=== PATIENT | female | born 1995 | race Caucasian/White ===

== ENCOUNTER 2020-08-29 11:30 | Outpatient (CLI) | payer OTHER | END 2020-08-29 11:33 | disposition home or self-care (01) | LOC: SONOGRAMA 11:30 | PROVIDERS: ATTEND Pathology Anatomic Pathology & Clinical Pathology | DX: E04.1 Nontoxic single thyroid nodule (principal) ==

== ENCOUNTER 2020-09-06 12:44 | Outpatient (CLI) | payer OTHER | END 2020-09-06 12:49 | disposition home or self-care (01) | LOC: OFIC 805 12:44 | PROVIDERS: ATTEND Otolaryngology | DX: R09.89 Other specified symptoms and signs involving the circulatory and respiratory systems (principal); K21.9 Gastro-esophageal reflux disease without esophagitis; R13.19 Other dysphagia; C73 Malignant neoplasm of thyroid gland ==